=== PATIENT | female | born 1995 | race Caucasian/White ===

== ENCOUNTER 2017-08-14 15:07 | Emergency (ER) | payer MEDICAID, OTHER, SELFPAY ==
[~2017-08-14] VITALS: Ht 170.2 cm; Wt 61.6 kg
[2017-08-14 15:35] VITALS: BP 116/76
== END 2017-08-14 16:12 | disposition home or self-care (01) ==
LOC: ED 16:00
DX: K02.9 Dental caries, unspecified (principal); K08.89 Other specified disorders of teeth and supporting structures
CPT/HCPCS: 99283